=== PATIENT | female | born 1995 | race Caucasian/White ===

== ENCOUNTER 2017-11-08 15:37 | Inpatient (IN) | payer MEDICAID ==
[~2017-11-08] VITALS: Ht 160 cm; Wt 130.5 kg
[~2017-11-08 15:37] MED LIST: OMNICEF 300MG300 MG PO
[2017-11-21] VITALS (8 sets, daily range): BP systolic 120–134; BP diastolic 59–86; PULSE 90–131; TEMP 98.4
[2017-11-21] MEDS ORDERED: TYLENOL 500MG500 MG PO (19:36)
[2017-11-21 20:10] LABS: BASO % 0.3 % (0.0-2.0); EOS # 0.1 (0.0-0.7); EOS % 0.6 % (0-4.0); GRAN # 9.1 (1.4-6.5); GRAN % 72.9 % (42.2-75.2); LYMPH # 2.4 (1.2-3.4); LYMPH % 19.5 % (20.0-51.0); MEAN CELL VOLUME 94 fl (80.0-100.0); MEAN CORPUSCULAR HGB CONC 33 g/dl (33.0-37.0); MEAN PLATELET VOLUME 11.3 fl (7.4-10.4); MONO # 0.7 (0.1-0.6); MONO % 5.7 % (1.7-9.3); PLATELET COUNT 277 K/mm3 (130-400); RED BLOOD COUNT 3.77 M/mm3 (4.10-5.30); REDCELL DISTRIBUTION WIDTH-CV 14.3 % (11.5-14.5)
[2017-11-21 20:33] LABS: HEMATOCRIT 35.4 % (37.0-47.0); HEMOGLOBIN 11.5 g/dl (12.5-16.0); MEAN CORPUSCULAR HEMOGLOBIN 31 pg (27.0-31.0)
[2017-11-22] VITALS (61 sets, daily range): BP systolic 108–161; BP diastolic 51–100; PULSE 65–126; TEMP 98–98.6
[2017-11-23] VITALS (8 sets, daily range): BP systolic 91–132; BP diastolic 47–83; PULSE 70–99; TEMP 97.9–98.9
[2017-11-23 06:52] LABS: BASO % 0.2 % (0.0-2.0); EOS # 0.1 (0.0-0.7); EOS % 0.4 % (0-4.0); GRAN # 13.4 (1.4-6.5); GRAN % 81.4 % (42.2-75.2); LYMPH % 11.9 % (20.0-51.0); MEAN CELL VOLUME 94 fl (80.0-100.0); MEAN CORPUSCULAR HGB CONC 33 g/dl (33.0-37.0); MEAN PLATELET VOLUME 10.8 fl (7.4-10.4); MONO # 0.9 (0.1-0.6); MONO % 5.6 % (1.7-9.3); PLATELET COUNT 195 K/mm3 (130-400); RED BLOOD COUNT 3.24 M/mm3 (4.10-5.30); REDCELL DISTRIBUTION WIDTH-CV 14.2 % (11.5-14.5)
[2017-11-23 06:53] LABS: HEMATOCRIT 30.4 % (37.0-47.0); HEMOGLOBIN 9.9 g/dl (12.5-16.0); MEAN CORPUSCULAR HEMOGLOBIN 31 pg (27.0-31.0)
[2017-11-23] MEDS ORDERED: IBU800 M1 PO (09:20)
[2017-11-23] MEDS ORDERED: PERCOCET 325 MG1 TA2 PO (09:20)
[2017-11-24 07:50] VITALS: BP 121/65; PULSE 96; TEMP 97.8
== END 2017-11-24 17:00 | disposition home or self-care (01) | DRG 766 ==
LOC: LDR 11-21 15:36 → OB 11-22 23:00
PROVIDERS: Student in an Organized Health Care Education/Training Program
PROC: 10D00Z1 Extraction of Products of Conception, Low, Open Approach (ICD-10-PCS; principal; 2017-11-22)
DX: O48.0 Post-term pregnancy (principal); O61.0 Failed medical induction of labor; O99.824 Streptococcus B carrier state complicating childbirth; O33.2 Maternal care for disproportion due to inlet contraction of pelvis; Z88.0 Allergy status to penicillin; Z3A.41 41 weeks gestation of pregnancy; Z37.0 Single live birth
CPT/HCPCS: J0690; J1200; J1885; J2250; J2270; J2370; J2400; J2405; J2590; J3370; J7050; J7120

== ENCOUNTER 2019-11-25 11:19 | Emergency (ER) | payer OTHER ==
[~2019-11-25] VITALS: Ht 162.6 cm; Wt 120.5 kg
[~2019-11-25 11:19] MED LIST changes: +IBU800 M1 PO; +PERCOCET 325 MG1 TA2 PO; +TYLENOL 500MG500 MG PO
[2019-11-25 14:47] VITALS: BP 128/70; PULSE 78; TEMP 98
== END 2019-11-25 14:46 | disposition home or self-care (01) ==
LOC: COL.ER 11:19
DX: S93.401A Sprain of unspecified ligament of right ankle, initial encounter (principal); W18.42XA Slipping, tripping and stumbling without falling due to stepping into hole or opening, initial encounter; X50.1XXA Overexertion from prolonged static or awkward postures, initial encounter; Y92.59 Other trade areas as the place of occurrence of the external cause

== ENCOUNTER 2020-03-14 20:35 | Emergency (ER) | payer SELFPAY ==
[~2020-03-14] VITALS: Ht 167.6 cm; Wt 90.9 kg
[2020-03-14 22:29] LABS: STREP SCREEN NEGATIVE
[2020-03-15 00:03] LABS: COLLECTION METHOD CLEAN CATCH
[2020-03-15 00:08] LABS: MUCOUS Present /lpf; PH 6 (5-8); URINE APPEARANCE Cloudy; URINE BACTERIA Rare /hpf; URINE BILIRUBIN Negative (NEGATIVE); URINE BLOOD 1+ (NEGATIVE); URINE COLOR Yellow; URINE GLUCOSE Negative (NEGATIVE); URINE KETONE Negative (NEGATIVE); URINE LEUKOCYTE ESTERASE Negative (NEGATIVE); URINE NITRATE Negative (NEGATIVE); URINE PROTEIN(semi-quant) Negative (NEGATIVE); URINE RBC 0-2 /hpf; URINE UROBILINOGEN Negative (NEGATIVE)
[2020-03-15 00:20] VITALS: BP 128/70; PULSE 80; TEMP 98
== END 2020-03-15 00:20 | disposition home or self-care (01) ==
LOC: COL.ER 20:35
PROVIDERS: Physician Assistant
DX: B34.9 Viral infection, unspecified (principal); R07.81 Pleurodynia; Z20.828 Contact with and (suspected) exposure to other viral communicable diseases
CPT/HCPCS: J1885; J2405; J7030; Q9967

== ENCOUNTER 2021-06-28 06:21 | Outpatient (CLI) | payer MEDICAID ==
[~2021-06-28] VITALS: Ht 160 cm; Wt 114.5 kg
--- NOTE | 2021-06-28 06:30 | NUR ---
Pt arrived on unit ambulatory and with complaints of nausea and vomiting with a headache. Pt denies any contractions, leaking of fluid or vaginal bleeding and reports normal movement. EFM and toco monitors started. Vital signs WNL. Roles on the unit. FHR tracing and history reviewed. Orders for IV fluids, labs and zofran received.
[2021-06-28 07:30] VITALS: BP 125/82; PULSE 113; TEMP 98.4
[2021-06-28 08:09] LABS: ALBUMIN 3.5 gm/dL (3.5-5.0); BILIRUBIN,TOTAL 0.3 mg/dL (0.0-1.0); CALCIUM 8.8 mg/dL (8.4-10.2); CREATININE, serum 0.52 (0.52-1.25); POTASSIUM 3.6 mmol/L (3.4-5.0); TOTAL PROTEIN 6.9 gm/dL (6.4-8.2)
[2021-06-28 09:00] VITALS: BP 132/76; PULSE 88
--- NOTE | 2021-06-28 09:05 | NUR ---
Discharge instructions and follow up care reviewed. Pt verbalized an understanding, agreed with the plan and states no questions or concerns at this time.
== END 2021-06-28 09:10 | disposition home or self-care (01) ==
LOC: LDRO 06:21 → LDR 07:11 → LDRO 09:10 → LDR 06-30 10:26
PROVIDERS: Obstetrics & Gynecology
DX: O26.893 Other specified pregnancy related conditions, third trimester (principal); R11.2 Nausea with vomiting, unspecified; Z3A.32 32 weeks gestation of pregnancy
CPT/HCPCS: OP; J2405; J7030

== ENCOUNTER 2021-07-18 15:00 | Outpatient (CLI) | payer MEDICAID ==
[2021-07-18 17:35] VITALS: BP 143/91; PULSE 120; TEMP 97.4
[2021-07-18] MEDS ORDERED: ASPIRIN 81M81 MG/TA2 PO (17:36)
--- NOTE | 2021-07-18 17:46 | NUR ---
[id number] PATIENT HERE FOR COMPLAINTS OF BLEEDING WITH URINATION AND ON TOILET PAPER WHEN WIPED. EFM ON FHT 135 BABY VERY ACTIVE. NO CONTRACTIONS ON MONITOR OR FELT WITH PATIENT. SVE AMNIOTRACE NEGATIVE. CERVIX 0/40/HIGH. NO BLOOD NOTED ON GLOVE OR IN UNDERWEAR. DR GARZA CALLED AND ORDERS FOR UA AT THIS TIME. PATIENT UP TO BATHROOM AND UA OBTAINED
[2021-07-18 17:51] LABS: COLLECTION METHOD CLEAN CATCH
[2021-07-18 18:01] LABS: MUCOUS Present /lpf; PH 6 (5-8); SQUAMOUS EPITHELIAL 20-50 /hpf; URINE APPEARANCE Cloudy; URINE BACTERIA Occasional /hpf; URINE BILIRUBIN Negative (NEGATIVE); URINE BLOOD 1+ (NEGATIVE); URINE COLOR Amber; URINE GLUCOSE Negative (NEGATIVE); URINE KETONE Trace (NEGATIVE); URINE LEUKOCYTE ESTERASE Trace (NEGATIVE); URINE NITRATE Negative (NEGATIVE); URINE PROTEIN(semi-quant) 2+ (NEGATIVE); URINE RBC 20-50 /hpf; URINE UROBILINOGEN >=4.0 mg/dL (NEGATIVE)
[2021-07-18 18:11] VITALS: BP 131/90; PULSE 107; TEMP 98.6
== END 2021-07-18 18:15 | disposition home or self-care (01) ==
LOC: LDRO 15:00
PROVIDERS: Obstetrics & Gynecology
DX: O46.93 Antepartum hemorrhage, unspecified, third trimester (principal); Z3A.36 36 weeks gestation of pregnancy

== ENCOUNTER 2021-08-06 17:12 | Inpatient (IN) | payer MEDICAID ==
[~2021-08-06] VITALS: Ht 160 cm; Wt 115.9 kg
[~2021-08-06 17:12] MED LIST changes: +ASPIRIN 81M81 MG/TA2 PO
[2021-08-06] MEDS ORDERED: ZOFRAN8 MG (19:00)
[2021-08-06 19:20] VITALS: BP 117/73; PULSE 93; TEMP 99.1
[2021-08-06 20:39] LABS: BASO % 0.3 % (0.0-2.0); EOS % 0.3 % (0-4.0); GRAN # 8.5 K/mm3 (1.4-6.5); GRAN % 75.7 % (42.2-75.2); HEMOGLOBIN 11.8 g/dl (12.5-16.0); LYMPH # 1.9 K/mm3 (1.2-3.4); LYMPH % 16.6 % (20.0-51.0); MEAN CELL VOLUME 96 fl (80.0-100.0); MEAN CORPUSCULAR HEMOGLOBIN 32 pg (27.0-31.0); MEAN CORPUSCULAR HGB CONC 34 g/dl (33.0-37.0); MEAN PLATELET VOLUME 11.8 fl (7.4-10.4); MONO # 0.8 K/mm3 (0.1-0.6); MONO % 6.7 % (1.7-9.3); PLATELET COUNT 219 K/mm3 (130-400); RED BLOOD COUNT 3.67 M/mm3 (4.10-5.30); REDCELL DISTRIBUTION WIDTH-CV 12.7 % (11.5-14.5)
[2021-08-06 20:51] LABS: HEMATOCRIT 35.1 % (37.0-47.0)
--- NOTE | 2021-08-06 21:42 | NUR ---
25 YO AT 37.5 WKS GESTATION TO ROOM 213 FOR SCHEDULED REPEAT . PT WAS SEEN AT [facility] TODAY FOR ROUTINE APPOINTMENT AND HAD A 6/8 BPP. PT HAS POLYHYDRAMNIOS AND HAS HAD DECREASED MOVEMENT TODAY. PT REPORTS SOME MILD CRAMPING AND DENIES LEAKING ANY FLUID OR VAGINAL BLEEDING. PLAN OF CARE DISCUSSED WITH PT AND FAMILY
--- NOTE | 2021-08-06 21:51 | NUR ---
1848 18G STARTED TO LEFT HAND, LR INFUSING TO GRAVITY
--- NOTE | 2021-08-06 21:58 | NUR ---
FEW IRREG MILD CTXS
--- NOTE | 2021-08-06 22:09 | NUR ---
DR OAKES IN TO SEE PT, NOTIFIED PT AND FAMILY THAT SHE IS GOING TO POSTPONE UNTIL TOMORROW MORNING, AND THAT WE WILL MOVE HER TO A LABOR ROOM FOR MONITORING OVER NIGHT, PT AGREEABLE
--- NOTE | 2021-08-06 22:24 | NUR ---
AMBULATES TO LABOR ROOM 3 WITH S.O.
[2021-08-06 23:00] VITALS: BP 125/69; PULSE 71; TEMP 98.3
--- NOTE | 2021-08-06 23:19 | NUR ---
PT SITS UP EATIN FOOD BROUGHT IN BY FAMILY, FHT'S NOT TRACING WELL, INTERMITTENT TRACING FHT'S AT 135, OCCASIONAL IRREG CTXS
--- NOTE | 2021-08-06 23:23 | NUR ---
FHT'S INTERMITTENT TRACING, FETUS ACTIVE, FEW IRREG MILD CTXS
--- NOTE | 2021-08-06 23:28 | NUR ---
PT RESTS IN BED, SO AT BEDSIDE, CONTINUES TO HAVE FEW IRREG MILD CTXS
--- NOTE | 2021-08-06 23:34 | NUR ---
EFM OFF AT THIS TIME, IV FLUIDS DC'D, CONVERTED TO SALINE LOCK. PT DENIES ANY NEEDS AT THIS TIME
[2021-08-07] VITALS (21 sets, daily range): BP systolic 91–132; BP diastolic 50–82; PULSE 57–90; TEMP 97.2–98.2
--- NOTE | 2021-08-07 02:48 | NUR ---
EFM BACK ON FOR INTERMITTENT MONITORING PER DR ORDER, PT FEELING ACTIVITY AND OCCASIONAL CRAMPING
--- NOTE | 2021-08-07 02:53 | NUR ---
NO CTXS NOTED, PT RESTS QUIETLY WITH EYES CLOSED
--- NOTE | 2021-08-07 02:56 | NUR ---
fEW IRREG MILD CTXS
--- NOTE | 2021-08-07 02:57 | NUR ---
PT NEEDS UP TO BR TO VOID, EFM OFF AT THIS TIME. PT AND SO DENIES ANY NEEDS
--- NOTE | 2021-08-07 06:09 | NUR ---
FEW IRREG CTXS, PT REPORTS FEELING A LITTLE CRAMPY
--- NOTE | 2021-08-07 06:14 | NUR ---
CONTINUES TO HAVE A FEW IRREG CTXS
[2021-08-07] MEDS ORDERED: IBU800 M1 PO (09:18)
[2021-08-07] MEDS ORDERED: PERCOCET 325 MG1 TA2 PO (09:18)
[2021-08-08 04:47] VITALS: BP 112/81; PULSE 71; TEMP 98.3
[2021-08-08 09:00] VITALS: BP 131/76; PULSE 65; TEMP 97.7
[2021-08-08 19:00] VITALS: BP 139/75; PULSE 66; TEMP 98.4
[2021-08-09 08:00] VITALS: BP 116/71; PULSE 78; TEMP 97.8
--- NOTE | 2021-08-09 15:30 | NUR ---
Pt requesting to go to boarder status. Discharge order received from Dr. Pete.
--- NOTE | 2021-08-09 16:00 | NUR ---
Discharge instructions, follow up care and boarder status reviewed with pt and at the bedside. Both verbalized an understanding, agreed with the plan and states no questions or concerns at this time.
== END 2021-08-09 16:00 | disposition home or self-care (01) | DRG 788 ==
LOC: OB 18:31 → LDR 18:31 → OB 18:33 → LDR 20:25 → OB 08-07 10:00
PROVIDERS: Student in an Organized Health Care Education/Training Program; ADMIT Obstetrics & Gynecology
PROC: 10D00Z1 Extraction of Products of Conception, Low, Open Approach (ICD-10-PCS; principal; 2021-08-07)
DX: O40.3XX0 Polyhydramnios, third trimester, not applicable or unspecified (principal); O36.5930 Maternal care for other known or suspected poor fetal growth, third trimester, not applicable or unspecified; O99.820 Streptococcus B carrier state complicating pregnancy; O99.214 Obesity complicating childbirth; O28.8 Other abnormal findings on antenatal screening of mother; O34.211 Maternal care for low transverse scar from previous cesarean delivery; O26.893 Other specified pregnancy related conditions, third trimester; R51.9 Headache, unspecified; Z3A.37 37 weeks gestation of pregnancy; Z37.0 Single live birth; Z79.82 Long term (current) use of aspirin; Z86.16 Personal history of COVID-19; Z88.0 Allergy status to penicillin
CPT/HCPCS: J0690; J1885; J2370; J2405; J2590; J7120

== ENCOUNTER 2023-07-29 09:28 | Emergency (ER) | payer MEDICAID ==
[~2023-07-29] VITALS: Ht 162.6 cm; Wt 110.5 kg
[~2023-07-29 09:28] MED LIST changes: +TYLENOL 325MG325 MG PO; +ZOFRAN8 MG
[2023-07-29 09:38] VITALS: BP 133/89; TEMP 97.7
[2023-07-29] MEDS ORDERED: MOTRIN 800800 MG/TAB PO (10:01)
[2023-07-29 10:53] VITALS: PULSE 86
== END 2023-07-29 11:36 | disposition home or self-care (01) ==
LOC: COL.ER 09:28
DX: S93.401A Sprain of unspecified ligament of right ankle, initial encounter (principal); S93.601A Unspecified sprain of right foot, initial encounter; X58.XXXA Exposure to other specified factors, initial encounter

== ENCOUNTER 2024-01-19 13:36 | Emergency (ER) | payer SELFPAY ==
[~2024-01-19] VITALS: Ht 160 cm; Wt 115.0 kg
[~2024-01-19 13:36] MED LIST changes: +MOTRIN 800800 MG/TAB PO
[2024-01-19 13:45] VITALS: TEMP 98.3
[2024-01-19 15:46] VITALS: BP 143/83; PULSE 54
== END 2024-01-19 15:46 | disposition home or self-care (01) ==
LOC: COL.ER 13:36
DX: S09.90XA Unspecified injury of head, initial encounter (principal); W22.8XXA Striking against or struck by other objects, initial encounter; Y92.59 Other trade areas as the place of occurrence of the external cause; Y99.0 Civilian activity done for income or pay